=== PATIENT | male | born 1945 | race Caucasian/White ===

== ENCOUNTER 2018-04-21 12:11 | Emergency (ER) | payer MEDICARE, BC ==
--- NOTE | 2018-04-21 12:27 | ER Report ---
History and Physical Time Seen By MD: 12:27 Hx. of Stated Complaint: patient reports that he is traveling and was seen in the [facility] er for anemia. he reports that they couldn't transfuse him there SERAFIN/SOFIA Is a 72-year-old male with a significant cardiac history who presents to the emergency department with symptomatic anemia. 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 He has had ongoing issues with drops in H&H. He has been worked up extensively back in [facility]. He has had both colonoscopy and endoscopy. He has been seen by a preparation supervisor freezing, and has also had bone marrow testing. He has not had problems with his blood cell counts in the past year. He felt himself becoming more weak 5 days ago, and stopped at an emergency department in [place]. He was told he had a hemoglobin of 8 but that was not low enough for a blood transfusion. When he reported the findings to his primary care physician this morning, primary care physician told him to come to the nearest emergency department. He denies chest pain or shortness of breath. He states that he only has generalized weakness. No dark stools. No hematemesis or hematochezia. His story was guaiac negative in [place] last night. He's had multiple cardiac catheterizations and currently has 6 cardiac stents. He is on both Eliquis and Plavix. Remainder of the 14 system rev: Yes Allergies: Coded Allergies: No Known Drug Allergies (Unverified , 04/21/18) Home Meds Reported Medications Metformin Hcl (METFORMIN HCL) 1,000 Mg Tablet, 1 TAB PO BID, TAB 04/21/18 Ranolazine (RANEXA) 1,000 Mg Tab.er.12h, 1000 MG PO BID 04/21/18 Pantoprazole Sodium (PANTOPRAZOLE SODIUM) 40 Mg Tablet.dr, 40 MG PO QDAY, TAB.SR 04/21/18 Metoprolol Succinate (METOPROLOL SUCCINATE) 25 Mg Tab.er.24h, 1 TAB PO QDAY, TAB 04/21/18 Furosemide (FUROSEMIDE) 40 Mg Tablet, 1 TAB PO QDAY, TAB 04/21/18 Diltiazem Hcl (DILTIAZEM 24HR CD) 120 Mg Cap.er.24h, 120 MG PO 04/21/18 Clopidogrel Bisulfate (CLOPIDOGREL) 75 Mg Tablet, 1 TAB PO QDAY, TAB 04/21/18 Apixaban (ELIQUIS) 2.5 Mg Tablet, 2.5 MG PO BID 04/21/18 Reviewed Nurses Notes: Yes Old Medical Records Reviewed: Yes Hx Smoking: Yes Smoking Status: Former Smoker Exposure to Second Hand Smoke?: No Hx Substance Use Disorder: No Hx Alcohol Use: No Constitutional Vital Sign - Last 24 Hours 04/21/18 04/21/18 04/21/18 04/21/18 12:11 12:15 12:15 12:30 Temp 98.0 Pulse ??? 138 Resp 20 B/P (MAP) 115/64 115/64 (81) 129/77 (94) Pulse Ox 82 O2 Delivery Room Air 04/21/18 04/21/18 04/21/18 04/21/18 12:41 12:45 13:00 13:11 Pulse ??? 100 Resp 11 B/P (MAP) 128/74 (92) 148/83 (104) Pulse Ox 98 96 04/21/18 04/21/18 04/21/18 04/21/18 13:41 14:00 14:18 14:30 Pulse 103 98 74 Resp 11 15 9 B/P (MAP) 113/75 (88) 106/59 (75) Pulse Ox 95 96 97 04/21/18 14:48 Pulse 91 B/P (MAP) 109/77 (88) Pulse Ox 95 O2 Delivery Nasal Cannula O2 Flow Rate 2 Physical Exam General Appearance: The patient is alert, has no immediate need for airway protection and no current signs of toxicity. Eyes: Pupils equal and round no injection. Respiratory: Chest is non tender, lungs are clear to auscultation. Cardiac: irregular no m/r/g Gastrointestinal: Abdomen is soft and non tender, no masses, bowel sounds normal. Extremities have full range of motion and are non tender. Skin: No rashes DIFFERENTIAL DIAGNOSIS: After history and physical exam differential diagnosis was considered for GI bleed, symptomatic anemia, iron deficiency, overly anticoagulated Medical Decision Making Data Points Result Diagram: 04/21/18 1239 04/21/18 1239 Laboratory Hematology Test 04/21/18 12:39 Red Blood Count 3.33 M/uL (4.00-5.60) Mean Corpuscular Volume 79.6 fL (80.0-96.0) Mean Corpuscular Hemoglobin 25.9 pg (26.0-33.0) Mean Corpuscular Hemoglobin Concent 32.6 g/dL (32.0-36.0) Red Cell Distribution Width 16.9 % (11.5-14.5) Mean Platelet Volume 7.4 fL (7.2-11.1) Neutrophils (%) (Auto) 71.9 % (39.4-72.5) Lymphocytes (%) (Auto) 15.9 % (17.6-49.6) Monocytes (%) (Auto) 10.2 % (4.1-12.4) Eosinophils (%) (Auto) 1.2 % (0.4-6.7) Basophils (%) (Auto) 0.8 % (0.3-1.4) Nucleated RBC Relative Count (auto) 0.0 /100WBC Neutrophils # (Auto) 3.4 K/uL (2.0-7.4) Lymphocytes # (Auto) 0.7 K/uL (1.3-3.6) Monocytes # (Auto) 0.5 K/uL (0.3-1.0) Eosinophils # (Auto) 0.1 K/uL (0.0-0.5) Basophils # (Auto) 0.0 K/uL (0.0-0.1) Nucleated RBC Absolute Count (auto) 0.00 K/uL Prothrombin Time 14.1 seconds (12.0-14.4) Prothromb Time International Ratio 1.09 Activated Partial Thromboplast Time 32 seconds (23-35) Sodium Level 140 mmol/L (137-145) Potassium Level 3.8 mmol/L (3.5-5.0) Chloride Level 101 mmol/L (98-107) Carbon Dioxide Level 26 mmol/L (22-30) Blood Urea Nitrogen 18 mg/dl (9-21) Creatinine 1.30 mg/dl (0.66-1.25) Glomerular Filtration Rate Calc 54.4 Random Glucose 213 mg/dl (75-110) Calcium Level 9.6 mg/dl (8.4-10.2) Total Bilirubin 0.4 mg/dl (0.2-1.3) Aspartate Amino Transf (AST/SGOT) 20 U/L (0-35) Alanine Aminotransferase (ALT/SGPT) 21 U/L (0-56) Alkaline Phosphatase 85 U/L (0-126) Troponin I 0.044 ng/ml Total Protein 6.9 g/dl (6.3-8.2) Albumin 4.0 g/dl (3.5-5.0) Chemistry Test 04/21/18 12:39 White Blood Count 4.7 k/uL (4.5-11.0) Red Blood Count 3.33 M/uL (4.00-5.60) Hemoglobin 8.6 g/dL (14.0-18.0) Hematocrit 26.5 % (42.0-52.0) Mean Corpuscular Volume 79.6 fL (80.0-96.0) Mean Corpuscular Hemoglobin 25.9 pg (26.0-33.0) Mean Corpuscular Hemoglobin Concent 32.6 g/dL (32.0-36.0) Red Cell Distribution Width 16.9 % (11.5-14.5) Platelet Count 209 K/uL (150-450) Mean Platelet Volume 7.4 fL (7.2-11.1) Neutrophils (%) (Auto) 71.9 % (39.4-72.5) Lymphocytes (%) (Auto) 15.9 % (17.6-49.6) Monocytes (%) (Auto) 10.2 % (4.1-12.4) Eosinophils (%) (Auto) 1.2 % (0.4-6.7) Basophils (%) (Auto) 0.8 % (0.3-1.4) Nucleated RBC Relative Count (auto) 0.0 /100WBC Neutrophils # (Auto) 3.4 K/uL (2.0-7.4) Lymphocytes # (Auto) 0.7 K/uL (1.3-3.6) Monocytes # (Auto) 0.5 K/uL (0.3-1.0) Eosinophils # (Auto) 0.1 K/uL (0.0-0.5) Basophils # (Auto) 0.0 K/uL (0.0-0.1) Nucleated RBC Absolute Count (auto) 0.00 K/uL Prothrombin Time 14.1 seconds (12.0-14.4) Prothromb Time International Ratio 1.09 Activated Partial Thromboplast Time 32 seconds (23-35) Glomerular Filtration Rate Calc 54.4 Calcium Level 9.6 mg/dl (8.4-10.2) Total Bilirubin 0.4 mg/dl (0.2-1.3) Aspartate Amino Transf (AST/SGOT) 20 U/L (0-35) Alanine Aminotransferase (ALT/SGPT) 21 U/L (0-56) Alkaline Phosphatase 85 U/L (0-126) Troponin I 0.044 ng/ml Total Protein 6.9 g/dl (6.3-8.2) Albumin 4.0 g/dl (3.5-5.0) Coagulation Test 04/21/18 12:39 Prothrombin Time 14.1 seconds Prothromb Time International Ratio 1.09 Activated Partial Thromboplast Time 32 seconds ED Course/Re-evaluation ED Course Very pleasant 72-year-old male with an extensive cardiac history. Also with a long-standing history of anemia of unknown origin. He has had multiple blood transfusions, but has not had a problem with anemia in approximately one year. He currently has an H&H of 8 and 26. 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 He is in regular contact with his primary care physician. He will receive 2 units in the [facility]. He will follow-up with his primary care physician when he returns to [place]. Decision to Disposition Date: Apr 21, 2018 Decision to Disposition Time: 14:46 Depart Departure Latest Vital Signs Vital Signs Date Time Temp Pulse Resp B/P (MAP) Pulse Ox O2 Delivery O2 Flow Rate FiO2 04/21/18 14:48 91 109/77 (88) 95 Nasal Cannula 2 04/21/18 14:30 9 04/21/18 12:15 98.0 Impression: Primary Impression: Symptomatic anemia Condition: Improved Disposition: HOME OR SELF-CARE Additional Instructions: Go directly to the infusion center for your blood transfusion SHAKIRA CERVANTES MD Apr 21, 2018 12:27
[2018-04-21] MEDS ORDERED: DILTIAZEM 5 MG/ML 5ML IVPUSH IVP ONE (12:30)
[2018-04-21 12:46] LABS: PLATELET COUNT, AUTOMATED 209 K/uL (150-450)
[2018-04-21] MEDS ORDERED: DILT120C18 PO (13:01)
[2018-04-21] MEDS ORDERED: PANT40TA65 PO (13:01)
[2018-04-21] MEDS ORDERED: METO25TA23 PO (13:01)
[2018-04-21] MEDS ORDERED: METF-452 PO (13:01)
[2018-04-21] MEDS ORDERED: FURO-47 PO (13:01)
[2018-04-21] MEDS ORDERED: APIX2.5T PO (13:01)
[2018-04-21] MEDS ORDERED: CLOP75TA PO (13:01)
[2018-04-21] MEDS ORDERED: RANO10002 PO (13:01)
[2018-04-21] MEDS ORDERED: METOPROLOL SUCC XL 25 MG TABCR PO ONE (13:10)
[2018-04-21 13:14] LABS: INR 1.09
[2018-04-21 14:48] VITALS: BP 109/77
[2018-04-21] MEDS ORDERED: NS(*) 0.9% 500 ML BAG 500 ML IV ONE (15:00)
[2018-04-22] MEDS ORDERED: ONDA4TAB PO (09:21)
--- NOTE | 2018-04-22 09:44 | EKG ---
FACILITY: [facility] PATIENT NAME: JABARI GUERRA : [id number] MR: [id number] V: [id number] EXAM DATE: ORDERING PHYSICIAN: SHAKIRA CERVANTES TECHNOLOGIST: Test Reason : cardia reason Blood Pressure : / mmHG Vent. Rate : 124 BPM Atrial Rate : 394 BPM P-R Int : 000 ms QRS Dur : 096 ms QT Int : 324 ms P-R-T Axes : 000 073 100 degrees QTc Int : 465 ms Atrial fibrillation with rapid ventricular response with premature ventricular or aberrantly conducte d complexes Nonspecific ST and T wave abnormality , probably digitalis effect Abnormal ECG No previous ECGs available Confirmed by Kodi Keller ([id number] on 04/22/2018 1:43:01 PM Referred By: Confirmed By:Kodi Bourgeois
== END 2018-04-21 15:48 | disposition home or self-care (01) ==
LOC: ER 12:33
DX: D64.9 Anemia, unspecified (principal)
CPT/HCPCS: 84484; 85025; 85610; 85730; 93005; 96374; 99283; J3490; J7040; 82040; 82247; 82310; 82374; 82435; 82565; 82947; 84075; 84132; 84155; 84295; 84450; 84460; 84520